=== PATIENT | male | born 1990 ===

== ENCOUNTER 2017-10-28 09:41 | Emergency (ER) | payer MEDICAID, OTHER ==
--- NOTE | 2017-10-28 11:24 | ED PDOC ---
History of Present Illness History of Present Illness: Pt presents to the ED complaining of two days of fever (max 102.3 and upon presentation at 101) and sore throat. Pt denies difficulty breathing, swallowing his own secretions or drooling. Pt also denies nausea, vomiting and diarrhea, but does complain of general body aches for the same period of time. Pt has no chronic medical conditions HPI: Influenza Time Seen by Provider: 10/28/17 10:08 Chief Complaint: Flu-like Symptoms Chief Complaint (Provider): Sore Throat History Per: Patient Exam Limitations: no limitations Have you had recent travel within the past 21 days to any of: No Onset/Duration Of Symptoms: Days (2) Symptoms include: fever, bodyaches, sore throat Sick Contacts (Context): None Past Medical History Reviewed: Historical Data, Nursing Documentation, Vital Signs Vital Signs: Last Vital Signs Temp 101.1 F H 10/28/17 09:52 Pulse 100 H 10/28/17 09:52 Resp 19 10/28/17 09:52 BP 120/80 10/28/17 09:52 Pulse Ox 98 10/28/17 09:52 - Family History Family History: States: Unknown Family Hx - Home Medications Home Medications: Ambulatory Orders Medication Instructions Recorded Cephalexin [cephalexin] 500 mg PO BID #20 cap 01/18/16 Amoxicillin/Clavulanate [Augmentin 1 tab PO BID #20 tab 10/28/17 875 MG-125 MG] Lidocaine 2% Viscous 5 ml MM QID #100 ml 10/28/17 - Allergies Allergies/Adverse Reactions: Allergies Allergy/AdvReac Type Severity Reaction Status Date / Time No Known Allergies Allergy Verified 01/18/16 18:51 Review of Systems ROS Statement: Except As Marked, All Systems Reviewed And Found Negative Constitutional: Positive for: Fever ENT: Positive for: Throat Pain Respiratory: Positive for: Cough Physical Exam - Reviewed Nursing Documentation Reviewed: Yes Vital Signs Reviewed: Yes - Physical Exam Appears: Positive for: Uncomfortable Head Exam: Positive for: ATRAUMATIC, NORMAL INSPECTION, NORMOCEPHALIC Skin: Positive for: Normal Color Eye Exam: Positive for: Normal appearance, EOMI, PERRL. Negative for: Nystagmus , Periorbital swelling, Periorbital tenderness ENT: Positive for: Pharynx Is (erythematous with exudate bilaterally; tonsils are +1 and behind the pillars), Nasal Congestion, Pharyngeal Erythema, Tonsillar Exudate. Negative for: Tonsillar Swelling Neck: Positive for: Painless ROM, Supple. Negative for: Decreased ROM Cardiovascular/Chest: Positive for: Regular Rate, Rhythm, Chest Non Tender. Negative for: Edema, Gallop, JVD, Murmur, Bradycardia Respiratory: Positive for: Normal Breath Sounds. Negative for: Decreased Breath Sounds, Accessory Muscle Use, Crackles, Rales, Rhonchi, Stridor, Wheezing , Respiratory Distress, Plerual Rub Pulses-Carotid (L): 2+ Pulses-Carotid (R): 2+ Pulses-Radial (L): 2+ Pulses-Radial (R): 2+ Medical Decision Making Medical Decision Making: clinical impression is acute pharn R/O strep and influenza will treat with augmentin for throat sx Influenza A/B (-) (-) Rapid Strep (-) (throat culture ordered) Plan: advise and educate patient on use of apap and ibu to control fever; rx: augmentin 875/125 BID [id number] for throat symptoms as well as viscous lidocaine for immediate control of throat pain - ECG O2 Sat by Pulse Oximetry: 98 Disposition - Clinical Impression Clinical Impression: Pharyngitis - Patient ED Disposition Is Patient to be Admitted: No Doctor Will See Patient In The: Office Counseled Patient/Family Regarding: Studies Performed, Diagnosis, Need For Followup, Rx Given - Disposition Referrals: [facility] [Outside] Disposition: Routine/Home Disposition Time: 12:40 Condition: FAIR Additional Instructions: for fever control: 650mg of tylenol or acetaminophin no more than three times a day AND 600mg of motrin or ibuprofen no more than four times a day Prescriptions: Amoxicillin/Clavulanate [Augmentin 875 MG-125 MG] 1 tab PO BID #20 tab Lidocaine 2% Viscous 5 ml MM QID #100 ml Instructions: Sore Throat in Adults, Sore Throat, Adult (DC) Forms: [facility] ([place]), [facility] ED School/Work Excuse
[2017-10-28 12:47] VITALS: BP 102/60; PULSE 80; RESP 17; TEMP 99.1; O2SAT 96
== END 2017-10-28 13:05 | disposition home or self-care (01) ==
LOC: H.ER 09:41
DX: J02.9 Acute pharyngitis, unspecified (principal); R50.9 Fever, unspecified